=== PATIENT | female | born 1985 ===

== ENCOUNTER 2021-01-09 17:16 | Emergency (ER) | payer MEDICAID ==
[~2021-01-09] VITALS: Ht 172.7 cm; Wt 89.5 kg
[2021-01-09 17:25] VITALS: BP 167/101
== END 2021-01-09 20:07 | disposition left against medical advice (07) ==
LOC: ER 17:16 → EEVIPCON 17:16 → ER 20:07
DX: Z53.21 Procedure and treatment not carried out due to patient leaving prior to being seen by health care provider (principal)